=== PATIENT | male | born 1960 | race Caucasian/White ===

== ENCOUNTER 2024-07-20 08:56 | Day surgery (SDC) | payer BC, SELFPAY ==
[2024-07-13 09:57] VITALS: BMI 34.9
[2024-07-20] VITALS (14 sets, daily range): BP systolic 134–173; BP diastolic 68–105; PULSE 70–84; RESP 12–26; TEMP 36.2–36.9; O2SAT 93–97; BMI 34.9
--- NOTE | 2024-07-20 06:00 | DI.RAD.S_ITS ---
PROCEDURE: XR KNEE LT 1TO2V INDICATIONS: TKA TECHNIQUE: 2 view(s) of the knee acquired. COMPARISON: None. FINDINGS: Bones: Patient is status post knee joint arthroplasty. Hardware components are in expected positions. Visualized bony structures are intact. Soft tissues: Overlying postoperative changes are noted. IMPRESSION: Expected post-operative appearance of a knee arthroplasty. Dictated by: Seema Mahajan M.D. on 07/21/2024 at 9:43 Approved by: Seema Mahajan M.D. on 07/21/2024 at 9:44
[2024-07-20] MEDS: ACETAMINOPHEN 325 MG TABLET 975 MG PO (09:28)
[2024-07-20] MEDS: LACTATED RINGERS 1,000 ML 42 ML IV ×3 (09:30→16:15)
--- NOTE | 2024-07-20 11:01 | PM.PREOP ---
Pre-operative Note Interval Note History & Physical reviewed/Exam performed by Physician: Yes Changes to H&P: No
[2024-07-20] MEDS: CEFAZOLIN VIAL 3 GM in SODIUM CHLORIDE 0.9% 100 ML IV (11:21)
[2024-07-20] MEDS: TRANEXAMIC ACID 1,000 MG VIAL 1000 MG INJ ×2 (11:37→14:05)
--- NOTE | 2024-07-20 12:03 | SUR.OPER ---
Supine on padded OR bed. Pillow under head, arms secured on padded armboards <90 degree abduction. Safety belt across torso. Non-operative leg secured with tape over blanket over lower leg. Operative leg secured in Shaheen positioner. Foam padded brace at thigh of operative leg.
[2024-07-20] MEDS: VANCOMYCIN 1,000 MG VIAL 1000 MG TOP (12:20)
[2024-07-20] MEDS: ROPIVACAINE/EPI/CLONIDINE/KET 50 ML SYRINGE INJ (12:30)
--- NOTE | 2024-07-20 15:24 | P.OP_ITS ---
Operative Date/Time/Diagnoses Date of procedure: 07/20/24 Pre-op diagnosis: Arthrofibrosis of left total knee arthroplasty Post-op diagnosis: same Procedure & Clinicians Procedure: Revision of femoral component of left total knee arthroplasty with robotic assistance Same procedure as scheduled: Yes Surgeon: Jean Santos Upholsterer Apprentice: Tasha Wick Anesthesia Type: General, Spinal and Local Operative Notes Estimated Blood Loss (mL): 200 Tourniquet time (min): 130 Procedure in detail: Revision of femoral component of left total knee arthroplasty with retention of tibial component using robotic assistance for arthrofibrosis and intraosseous administration of vancomycin Implants: * Size 7 legion revision femoral component with 10 mm distal/5 mm posterior medial augment, 5 mm distal/10 mm posterior lateral augment and 14 mm x 160 mm cemented stem * Size 18 femoral cone * 9 mm oswald 2 posterior stabilized high flexion polyethylene insert with journey lock detail * Retention of prior journey 2 size 6 tibial base plate from prior surgery * Retention of prior 35 mm patellar button from prior surgery Procedure Summary: This 63-year-old male patient presented to my clinic with a primary complaint of a lack of terminal extension in his total knee arthroplasty which had been placed over a year ago. On my evaluation he lacked 22? of terminal extension. I initially planned to perform a lysis of adhesions and downsize his polyethylene insert however when I was able to get access to his old operative report indicated that he had the smallest size polyethylene insert in the system which eliminated the possibility of the less invasive procedure. He is immunosuppressed on to immunosuppressant medications because of his history of a liver transplant and because of this immunosuppression I was very concerned about the possibility of underlying infection. An extensive workup was performed prior to today's procedure which is outlined in the screen shot below taken from his medical record in the [facility] system: Intraoperatively today I inspected the patellar and tibial components and found that they were well fixed so they were retained. I did not see any signs of infection during my evaluation of the knee during the surgery but did send 3 cultures for analysis, both the medial and lateral gutter and the intramedullary contents of the femur. With robotic assistance I resected an additional 7.5 mm of distal femur to allow him to achieve full extension. Stem and cone were used on the femur to provide both short term and long-term biologic fixation. At the conclusion of the procedure had full range of motion knee in both flexion and extension had balanced medial and lateral compartments in both flexion and extension. Procedure in Detail: Following preoperative optimization, the patient was scheduled for surgery. The patient was met in the preoperative holding area the day of the procedure and all questions were answered. The patient?s nares were swabbed with betadine in order to decolonize them from MRSA. Informed consent was signed and the laterality limb was marked with indelible ink.? The patient was brought back to the operating room where anesthesia was induced. The patient was transferred to the operating table and all bony prominences were padded. The operative site was prepped and draped in the usual sterile fashion. A second prep stick was utilized following drape placement. The incision was marked corresponding to the medial aspect of the tibial tubercle and the patella. Ioban was wrapped circumferentially around the knee. Prior to incision, tranexamic acid and cefazolin were administered. Templating images were displayed. A timeout procedure was performed verifying the patient?s identity, medical comorbidities, allergies, relevant medications, anesthesia type and the surgical plan. All present were in agreement. The assistance of a physician shampoo assistant was required for positioning, room setup, soft tissue retraction and wound closure. Without this assistance, the procedure would have been significantly more challenging and time consuming.?? The tourniquet was inflated prior to incision. I made a stab incision over the proximal tibia and placed an intraosseous needle into the tibia and then infiltrated the tibial bone with 60 mL of dilute vancomycin so that it would backflow through the venous system into all of the soft tissues and bone of the knee while the tourniquet remained up. I dissected through the old scar and excised it. I noted while doing this that the scar even in the skin was extremely thick. I extended the incision proximally and distally. Dissected through subcutaneous scar and identified the lateral border of the VMO. I performed a medial parapatellar arthrotomy and again noted abundant scar which was very thick throughout that area. I dissected the scar deep to the quadriceps tendon off of the anterior femur where it was partially adhesed and performed a medial peel off the proximal tibia. Attempted to melissa the patella but was unable to do so. I would return to this later in the case and excise scar from around the patellar button once I was able to melissa the patella. I placed 2 Javier is on the extensor mechanism medially and excised the tissues medial gutter. Sent this for culture. I then moved to the other side of the table and did the same for the lateral gutter, placing 2 coworkers and then excising it. I also sent this for culture. I placed pins for the robotic array in the tibia and femur. I ensured appropriate visualization for the robotic system and assess the range of motion of the knee. This indicated that he lacked 23? of terminal extension. This aligned with my preoperative findings that I had measured photographically at 22?. I performed stressed and unstressed range of motion testing of the knee after registering bony landmarks and constructed a plan which would result in an appropriately balanced knee. One major challenge of this was his inability to achieve full extension which meant that we could not incorporate terminal extension balancing into our plan in a definitive fashion. All changes were engineered to occur through the femoral component as I planned to retain the tibial component and did not want to program the robotic assistance to make any adjustments from the current tibial orientation. I then loosened the interface between the femoral component and the underlying bone using a combination of a microsagittal saw and osteotomes. The femoral component was well fixed. I used a [employer] back slap device which locked onto the femoral component to loosen it and adjusted it accordingly for the rocking motion which is necessary when placing a journey 2 knee due to the 5 in 1 cut. Once the femoral component had successfully been removed I evaluated the underlying bone and the back of the implant. I found that there was still cement attached to the femoral component, particularly posteriorly, and the bone below it was stress shielded but there were no large bony defects. Using the robotic system I then resected bone according to the planned orientation of the femoral component. This left bony defects distally and posteriorly. I adjusted the programming for the medial and lateral distal femur to accommodate 5 mm augments and resected this bone using the bur. I found that this resulted in an appropriate bony interface laterally but not medially so I resected an additional 5 mm medially intending to use a 10 mm augment. I then repeated this process for the posterior femur, in that instance finding that 5 mm was sufficient posterior medially but not posterior laterally and I therefore resected an additional 5 mm posterior laterally and used a 10 mm posterolateral augment. I placed a trial primary femoral component on the femur with the corresponding augments and the smallest polyethylene insert in the system. I found that this had improved extension as the knee was much closer to being straight but was still clearly not straight. The robotic system indicated that it still lacked 12? of terminal extension. Initially the programming we had utilized for the robotic resection had moved the distal femur 4.5 mm proximally so we adjusted the programming to move it 3 mm more proximally both medially and laterally to result in a total of 7.5 mm of additional distal femoral resection. The robotic bur was utilized to remove this bone and to ensure that the corresponding chamfers had been removed as well and then the trial femoral component with the corresponding augments was placed again. I now noted further extension, with the knee appearing to be grossly straight and the robotic array measuring the knee in 2? of flexion when it was held by the heel. Being satisfied with the position of the planned femoral component I removed the robotic arrays from the tibia femur. Used rigid reamers to ream up to 16 mm in the distal femur and placed the revision femoral trial with the correct augments over that to ensure that the boss would fit in the femoral canal which it did. I therefore removed the femoral component and used reamers and broaches to prep for the smallest size femoral cone in the system which is a size 18 cone. I placed a cone trial in the femur. I placed the femoral trial back now including a 14 mm x 160 mm stem in ensure that everything fit appropriately. I again trialed and was satisfied with the balance between the flexion and extension gaps as well as between the medial lateral compartments. I removed all trial components and soaked the knee in a dilute mixture of Betadine and peroxide. Definitive components were opened and assembled on the back table. The femur was exposed and the femoral cone was inserted into the distal femur. The femur was irrigated with pulse lavage and cement was introduced into the distal and posterior femoral surfaces as well as into the femoral canal proximal to the cone. The antibiotics did not interfere with the interface between the cone and the bone. Cement was placed on the femoral component and stem as well. The femoral component was placed and impacted down. Excess cement was removed. A trial polyethylene was placed and the knee was brought into full extension and pressurized. The tourniquet was let down when cement was nearly dry and hemostasis was achieved. I again soaked all of the components in dilute Betadine and peroxide. It was at this point that I also resected scar from around the patellar button as I could now access it at the conclusion of the case. After cement had been allowed to dry the excess cement was removed and the posterior capsule was inspected for bleeding. Inserted the polyethylene insert which would meet the retained journey 2 tibial base plate to the revision legion femoral component. I had at multiple points throughout the procedure tested the stability of the tibial component to ensure that it was well fixed. Infiltrated the soft tissues around the knee with a mixture of ropivacaine epinephrine clonidine and Toradol. The arthrotomy was closed with non-absorbable interrupted suture ensuring that this extended to the top of the arthrotomy. This was backed up with running barbed suture throughout the arthrotomy. The skin was closed with 2-0 and 3-0 sutures. Surgical glue was applied and a soft dressing was placed.?The sponge, instrument and needle counts were reported as being correct at the end of the case.??No obvious complications occurred. The patient was transferred from the operating table back to a stretcher. The patient emerged from anesthesia without difficulty and was taken to the PACU in a stable condition.? Plan for aftercare: * Weightbearing as tolerated * A lan incisional wound VAC has been placed which should remain in place until his follow up visit in clinic. After a week the battery will at which point the cord can be removed and it can be used as a normal dressing until follow up * In order to limit the possibility of the occurrence of infection given the high risk with the revision surgery and his immunosuppression I utilized intraosseous vancomycin with the tourniquet up so that it would backflow into all of the soft tissues. I also will prescribe him prophylactic cefadroxil postoperatively which will be taken twice a day. * Aspirin 81 twice per day for DVT prophylaxis * Indomethacin 25 mg 3 times per day to attempt to limit scar formation given the abundant scar that was formed following his prior total knee * Proton pump inhibitor while on indomethacin to minimize the risk of gastric complications related to that medication * Continue immunosuppressive medications for his prior liver transplant * Anticipate discharge home tomorrow * Follow up at [facility] in 2 weeks * Detailed postoperative instructions available at [email or web address]
[2024-07-20] MEDS: HYDROMORPHONE 1 MG INJ IV (15:33)
[2024-07-20] MEDS: OXYCODONE IR 5 MG TABLET PO (15:34)
[2024-07-20] MEDS: hydrOXYzine HCL 25 MG TABLET PO (15:34)
[2024-07-20] MEDS: LORazepam 2 MG/ML INJ 0.25 MG IV ×2 (15:58→16:15)
--- NOTE | 2024-07-20 16:03 | SUR.PHASEI ---
Pt attempting to crawl out of bed despite relaxation techniques and education. Dr. Washburn notified. Order for Ativan IV received. Given per order, see AUG.
[2024-07-20] MEDS: CEFAZOLIN 2 GM/100 ML PREMIX 100 ML IV (18:57)
[2024-07-20] MEDS: LACTATED RINGERS 1,000 ML 100 ML IV (18:58)
[2024-07-20] MEDS: TACROLIMUS 0.5 MG CAPSULE 1 MG PO (20:22)
[2024-07-20] MEDS: ASPIRIN EC 81 MG TABLET PO (20:22)
[2024-07-20] MEDS: MYCOPHENOLATE MOFETIL 500 MG TABLET PO (20:23)
[2024-07-20] MEDS: IBUPROFEN 600 MG TABLET PO (22:55)
[2024-07-20] MEDS: ACETAMINOPHEN 325 MG TABLET 650 MG PO (22:55)
[2024-07-21] VITALS: BP 124/68; PULSE 93; RESP 20; TEMP 36.7; O2SAT 95
[2024-07-21] MEDS: CEFAZOLIN 2 GM/100 ML PREMIX 100 ML IV (02:32)
[2024-07-21 04:00] VITALS: BP 135/76; PULSE 92; RESP 20; TEMP 36.4; O2SAT 96
[2024-07-21 04:46] LABS: Hemoglobin 11.2 g/dL (13.5-17.5)
--- NOTE | 2024-07-21 06:53 | PC.NURSE ---
NOC: Pt OOB with SBA/FWW, voiding >30mL/hr, pain well controlled with scheduled APA and ibuprofen.
--- NOTE | 2024-07-21 07:40 | P.DS_ITS ---
History of Present Illness History of Present Illness Date Patient Seen: 07/21/24 Time Patient Seen: 07:40 Chief complaint: Left total knee revision *OPB* Narrative: Operative Date/Time/Diagnoses Date of procedure: 07/20/24 Pre-op diagnosis: Arthrofibrosis of left total knee arthroplasty Post-op diagnosis: same Procedure & Clinicians Procedure: Revision of femoral component of left total knee arthroplasty with robotic assistance Same procedure as scheduled: Yes Surgeon: Jean Santos Collar Turner Operator: Tasha Wick Anesthesia Type: General, Spinal and Local Operative Notes Estimated Blood Loss (mL): 200 Tourniquet time (min): 130 Procedure in detail: Revision of femoral component of left total knee arthroplasty with retention of tibial component using robotic assistance for arthrofibrosis and intraosseous administration of vancomycin Implants: * Size 7 legion revision femoral component with 10 mm distal/5 mm posterior medial augment, 5 mm distal/10 mm posterior lateral augment and 14 mm x 160 mm cemented stem * Size 18 femoral cone * 9 mm oswald 2 posterior stabilized high flexion polyethylene insert with journey lock detail * Retention of prior journey 2 size 6 tibial base plate from prior surgery * Retention of prior 35 mm patellar button from prior surgery Discharge Providers Provider Discharge Date: 07/21/24 Primary care physician: Leonid Rachel MD Consults: 07/13/24 10:56 Consult to Anesthesiology Routine Comment: Consulting Provider: Anesthesiologist Reason for consultation: Surgeon requested re: Liver transplant 07/20/24 06:00 Consult to Anesthesiology Routine Comment: Consulting Provider: Anesthesiologist Reason for consultation: Regional block for post operative pain control Has provider been notified: No 07/20/24 16:53 Consult to Discharge Planning Routine Comment: Consult to Occupational Therapy Evaluate & Treat Comment: Physician Instructions: Evaluate and treat Consult to Physical Therapy Evaluate & Treat Comment: Physician Instructions: postop TKA protocol Discharge provider: Tasha Wick PA-C Summary Hospital Course Discharge Diagnosis: Arthrofibrosis of left total knee arthroplasty; s/p revision of femoral and polyethylene components Hospital Course: Mr Rose's hospital course was unremarkable. On the morning of POD# 1, he was feeling well and wanted to go home. He was eating and voiding without difficulty and his pain was well-controlled without opioids. He had not yet worked with PT but had been OOB several times and I observed him get out of bed and walk around his room with a walker. Exam Vital Signs (past 8 hours): - 07/21/24 00:00 07/21/24 04:00 Temperature 98.1 F 97.5 F L Pulse Rate 93 H 92 H Respiratory Rate 20 20 Blood Pressure 124/68 135/76 Pulse Oximetry 95 96 Oxygen Flow Rate 0 0 Oxygen Delivery Method Room Air Oxygen Flow Rate 0 Narrative Exam Narrative: 5/5 strength in hip flexors, quadriceps, hamstrings, PF, DF, EHL on right. Sensation to light touch intact throughout RLE. Calf soft and compressible. MILY over webril and FATIAMH CDI; FATIMAH functioning. Objective Labs 07/21/24 04:35 Labs: Laboratory Results - last 24 hr 07/21/24 04:35 Hgb 11.2 L Hct 33.0 L PFSH Medical History (Updated 07/13/24 @ 10:21 by Radha Hicks RN) History of COVID-19 (2019) GREENBERG (nonalcoholic steatohepatitis) Pre-diabetes HTN (hypertension) Surgical History (Updated 07/13/24 @ 10:16 by Radha Hicks RN) Hx of tonsillectomy History of total left knee replacement (12/24/22) Hx of liver transplant (03/2021) Social History household members: none Smoking Status: Former smoker alcohol intake: former Discharge Assessment & Plan Assessment and Plan Assessment: Arthrofibrosis of left total knee arthroplasty; s/p revision of femoral and polyethylene components Plan of Treatment: Discharge home after PT, outpt PT, f/u in office as scheduled. ASA BID for VTE prophylaxis, cefadroxil for PJI prophylaxis, indomethicin for inflammation control, omeprazole as protective PPI. Discharge Plan Discharge Plan Patient Disposition: Home Discharge orders & Medications Discharge Orders: Discharge (Order); Ordered 07/21/24 Ordered By: Tasha Wick Prescriptions: New indomethacin 25 mg capsule 25 mg PO TID Qty: 42 0RF Rx Instructions: administer with food or milk. DO NOT take ibuprofen or other NSAIDs while taking this medication. omeprazole 20 mg capsule,delayed release(DR/EC) 20 mg PO BID Qty: 60 0RF Rx Instructions: Take twice daily while taking indomethacin. Continued amlodipine 5 mg Tablet 5 mg PO BEDTIME mycophenolate mofetil 500 mg Tablet 500 mg PO BID magnesium 250 mg Tablet 250 mg PO DAILY tacrolimus 1 mg Capsule 1 mg PO Q12H Follow up/Referrals: Leonid Rachel MD [Primary Care Provider] - Jean Santos MD [Physician] - 07/31/24 1:00 pm (Follow up w/ Tasha Wick PA-C) Diet/Activity/Treatments Diet: Diet as Tolerated Activity: Weightbearing as tolerated. Walk frequently! Cold/Heat Therapy: Ice to knee as needed for pain. Skin/Wound/Dressing Care Report to your healthcare provider any signs of infection, such as:: chills, fever, night sweats, unusual drainage and unusual redness Dressing: May remove MILY wrap and cotton padding and shower on 07/22/2024. Leave FATIMAH dressing in place until follow up in office. No bathing or otherwise soaking incision. In 5-7 days, batteries will , at which point you can cut off the battery pack and dispose of it. Leave the dressing on until your appointment. Call the office if the dressing becomes saturated inside. Visit Report/Discharge Packet Instructions: DI for Knee Replacement, DI for Prescription Opioid Use Stand Alone Forms: Patient Portal/API, Surgery Discharge Discharge Data Primary Care Provider: Leonid Rachel Attending Provider: Jean Santos Quality VTE Deep Vein Thrombosis/Pulmonary Embolism Present on Admission: No
--- NOTE | 2024-07-21 09:30 | PT.IIE ---
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) Hx of liver transplant (03/2021) Hx of tonsillectomy Medical History (Last Updated 07/13/24 @ 10:21 by Radha Hicks RN) History of COVID-19 (2019) HTN (hypertension) GREENBERG (nonalcoholic steatohepatitis) Pre-diabetes Physical Therapy Inpatient Evaluation/Re-Eval M1 PT/OT-IP Prior Functional Status Start: 07/21/24 12:27 Freq: NEEDED Status: Active Protocol: Document 07/21/24 09:30 AB (Rec: 07/21/24 12:43 AB [id number]) Medical Review Prior Functional Status Medical History Reviewed Yes Communication able to make needs known Mobility and Gait pt stated that he was modified independent with all mobilities and ambulation using a SPC 50% more for outdoor mobility Activities of Daily Living and IADL's Pt having pain but able to do ADL and IADl needs. Social History Household Members none Living Arrangements House Number of Floors (Floors) Two Floors Number of Stairs To Enter/Railing? 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 pt stated that his daughter will stay with him for a few days to assist him M2 PT-IP Current Condition Start: 07/21/24 12:27 Freq: NEEDED Status: Active Protocol: Document 07/21/24 09:30 AB (Rec: 07/21/24 12:43 AB [id number]) Physical Therapy Current Condition Current Condition Evaluation Date 07/21/24 Treatment Diagnosis s/p L TKA revision; difficutly in walking Onset Date 07/20/24 M3 PT-IP Subjective Start: 07/21/24 12:27 Freq: NEEDED Status: Active Protocol: Document 07/21/24 09:30 AB (Rec: 07/21/24 12:43 AB [id number]) Subjective Physical Therapy Visit Type Type Initial Evaluation Visit Start Time 09:30 Visit Stop Time 09:55 Number of MAP MAKER Visits 0 Physical Therapy Visit Comments Patient Comments agreeable to do PT Therapy Pain Assessment Pain When Pain Assessed At Rest Pain Present Pain Present Pain Reported Location Left Knee Intensity 3 Scale Used Numeric (0 - 10) Pain Behaviors Guarding Pain Management Techniques Apply Cold,Distraction, Elevation,Modification of Treatment,Re-positioning, Timing of Activity with Medications M4 PT-IP Mobility and Gait Start: 07/21/24 12:27 Freq: NEEDED Status: Active Protocol: Document 07/21/24 09:30 AB (Rec: 07/21/24 12:43 AB [id number]) PT-Bed Mobility Assessment Supine to Sit Supine to Sit Standby Assistance Sit to Supine Sit to Supine Standby Assistance PT-Transfer Assessment Sit to and From Stand Sit to and from Stand Standby Assistance,Use of Upper Extremities Equipment Transfer Assistive Device Gait Belt,Front Wheeled Walker Orthotic/Prosthetic Devices or Brace: No Transfers Transfer Destination Bed,Chair Transfer Technique Stand Step Pivot Transfer Ability Level of Assist Standby Assistance,1 Person Assistance,Use of Upper Extremities Comments Mobility Comments pt sitting on the chair and agreeable to do PT. obtained PLOF and home set up. pt is very impulsive. pt got up and squat pivot to EOB without AD even before PT can get FWW close for pt to use. educated pt on safety. pt completed sit<>supine SBA. sit to stand from EOB SBA and ambulated in room using FWW ~ 40ft SBA. cued for L quads activation and L knee stability. pt sat back on chair. positioned pt on the chair. call light and table placed next to pt. Gait Assessment Gait Gait Assistance Required: Standby Assistance Distance (Feet) 40 Able to Maintain Weight Bearing Status Yes During Gait Assistive Devices Assistive Device Gait Belt,Front Wheeled Walker Orthotic/Prosthetic Devices or Brace: No Gait Deviations General Gait Pattern Antalgic,Decreased Stride Length,Decreased Feet Clearance,Step-to Gait Factors Limiting Gait Function Factors Limiting Gait Function Decreased Activity Tolerance, Decreased Strength,Limited Range of Motion,Pain,Poor Balance,Poor Safety Awareness PT-Balance Assessment Sitting Balance and Reactions Static Sitting Balance Ability Normal Dynamic Sitting Balance Ability Normal Standing Balance and Reactions Static Standing Balance Ability Fair Dynamic Standing Balance Ability Fair Device Used FWW M5 PT-IP Objective Assessments Start: 07/21/24 12:27 Freq: NEEDED Status: Active Protocol: Document 07/21/24 09:30 AB (Rec: 07/21/24 12:43 AB [id number]) Orientation Orientation/Cognition Level of Alertness Alert Orientation Name,Place,Situation Language Function Ability No Deficits Noted Safety Awareness Decreased Safety Awareness Memory Description No Deficits Noted Strength Lower Extremity Strength Assessment Left Impaired Hip 3+/5 Knee 3+/5 Muscle Tone Muscle Tone WNL Yes M6 PT-IP Treatment Start: 07/21/24 12:27 Freq: NEEDED Status: Active Protocol: Document 07/21/24 09:30 AB (Rec: 07/21/24 12:43 AB [id number]) Physical Therapy Treatment Education Education Provided Safety M7 PT-IP Assessment and Plan Start: 07/21/24 12:27 Freq: NEEDED Status: Active Protocol: Document 07/21/24 09:30 AB (Rec: 07/21/24 12:43 AB [id number]) PT Summary Assessment and Plan Potential Rehabilitation Potential Good Summary Impairments Pain,ROM,Strength,Balance, Coordination,Sensation,Tone, Cognition,Bed Mobility, Transfers,Gait,Activity Tolerance Assessment Summary pt is a 63 y/o M s/p L TKA revision POD 1. pt requiring SBA with mobility using a FWW. pt will have his daughter with him to assist for a few days. pt has outpt PT set up. Goals Bed Mobility Goal Independent Transfer Goal Independent,Front Wheeled Walker Gait Goal Independent,Front Wheel Walker Gait Distance 300 Frequency of Treatment Frequency Of Treatment Twice a Day Treatment Plan Physical Therapy Treatment Plan Bed Mobility Training,Transfer Training,Gait Training, Therapeutic Exercise,Balance Retraining,Post Op Education, Discharge Planning,Hot or Cold Pack,Neuromuscular Re-ed, Coordination Retraining,Manual Therapy Weight Bearing Status Weight Bearing Status Weight Bear as Tolerated Allowed Weight Bearing Amount (enter % LLE WBAT or #) (%) Recommendations To Nursing Amount of Assist Needed Standby Assistance Discharge Recommendations PT Discharge Recommendations Home with Assistance, Outpatient PT Transportation Needs at Discharge Private Vehicle
--- NOTE | 2024-07-21 09:33 | OT.IP.EVAL ---
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 Activities of Daily Living and IADL's Pt having pain but able to do ADL and IADl needs. Social History Household Members none Living Arrangements House Number of Floors (Floors) Two Floors Number of Stairs To Enter/Railing? Pt has no step to get into the main level and already has a bed set-up in the living room. Home Environment Standard Height Toilet,Walk in Shower Home Equipment Front Wheel Walker,Straight Cane,Raised Toilet Seat w/ Armrests,Shower Seat without Backrest,Hand Held Shower,Long Handled Sponge,Long Handled Shoe Horn,Outpatient Physical Therapist Assistant,Sock Aid, Grab Bars In Shower M2 OT-IP Current Condition Start: 07/21/24 10:09 Freq: Status: Active Protocol: Document 07/21/24 10:09 [facility] (Rec: 07/21/24 10:17 [facility] [id number]) Occupational Therapy Current Condition Current Condition Evaluation Date 07/21/24 Treatment Diagnosis S/P L TKA revision Diagnosis Onset Date 07/20/24 M3 OT- IP Subjective and Pain Start: 07/21/24 10:09 Freq: Status: Active Protocol: Document 07/21/24 10:09 [facility] (Rec: 07/21/24 10:17 [facility] [id number]) OT- Subjective Occupational Therapy Visit Type Type Initial Evaluation Visit Start Time 09:10 Visit Stop Time 09:33 Occupational Therapy Visit Comments Patient Comments Pt agreed to get dressed. Patient/Caregiver Goals To go home. OT Pain Assessment Pain When Pain Assessed At Rest Pain Present Pain Present Pain Reported Location Left Knee Intensity 3 M4 OT- IP ADL's Start: 07/21/24 10:09 Freq: Status: Active Protocol: Document 07/21/24 10:09 [facility] (Rec: 07/21/24 10:17 [facility] [id number]) OT QST-Qotw-Ovdrurx General Evaluation Self-Feeding Ability Independent OT ADL-Grooming General Evaluation Grooming Ability Independent OT ADL-Oral Care Comments Oral Care Comments Not performed. OT ADL-Dressing General Eval Upper Body Dressing Ability Independent Lower Body Dressing Ability Standby Assistance Comments OT Dressing Comments Pt has LB dressing equipment at home. Encouraged pt to sit to get dressed. Educated pt to dress the LLE first and take out last. OT ADL-Toileting Comments OT Toileting Comments Pt states has urinal at home. Spoke on standing over the toilet with FWW. Educated pt to be mindful of his left knee positioning during hygiene and dressing needs. OT ADL-Bathing Comments OT Bathing Comments Pt aware to cover the dressing showering. M5 OT- IP IADL's Start: 07/21/24 10:09 Freq: Status: Active Protocol: Document 07/21/24 10:09 [facility] (Rec: 07/21/24 10:17 [facility] [id number]) OT-Instrumental Activities of Daily Living Deficits IADL Deficits Identified Deficits Home Safety Awareness Awareness of Need for Assistance at Home Good Awareness Ability to Problem Solve Emergency Able to Problem Solve Situations Medication Management Medication Management No Deficits Identified Money Management Money Management No Deficits Identified Meal Preparation Meal Preparation Comments Pt's daughter to assist. Tool Supervisor Tool Supervisor Comments Pt's daughter to assist. M6 OT- IP Functional Cognition Start: 07/21/24 10:09 Freq: Status: Active Protocol: Document 07/21/24 10:09 [facility] (Rec: 07/21/24 10:17 [facility] [id number]) Cognitive Factors Limiting Selfcare Function Cognitive Ability Level of Alertness Alert Patient Orientation Name,Age,Birthday,Month,Date, Year,Day of Week,Place, Situation Attention Span Ability Capable of Focused Attention, Capable of Sustained Attention Ability to Follow Commands Able to Follow Multi-Step Commands Safety Awareness Underestimates Need for Assistance Cognitive Comments Cognitive Assessment Comments Pt a bit impulsive and needing cues to slow down and keep the FWW in front of him at all times. OT- Vision and Hearing OT- Hearing Assessment OT- Hearing Assessment WFL OT- Vision Assessment Visual Acuity Glasses For Reading Visual Attentiveness WFL Occular Pursuits WFL M7 OT- IP Mobility and Balance Start: 07/21/24 10:09 Freq: Status: Active Protocol: Document 07/21/24 10:09 [facility] (Rec: 07/21/24 10:17 [facility] [id number]) OT-Transfer Assessment Sit to and From Stand Sit to and from Stand Independent Transfers Transfer Ability Independent Technique Transfer Destination Chair Transfer Technique Stand Step Pivot Devices Transfer Assistive Devices None,Front Wheeled Walker Comments Mobility Comments Pt distant supervision in the room with FWW. Mainly needing vc to slow down. OT- Balance Assessment Sitting Balance and Reactions Static Sitting Balance Ability Normal Dynamic Sitting Balance Ability Normal Standing Balance and Reactions Static Standing Balance Ability Normal Dynamic Standing Balance Ability Good M8 OT- IP Objective Assessments Start: 07/21/24 10:09 Freq: Status: Active Protocol: Document 07/21/24 10:09 [facility] (Rec: 07/21/24 10:17 [facility] [id number]) OT Gross Range of Motion Upper Extremity Range of Motion Assessment Within Functional Limits OT Strength Upper Extremity Strength Assessment Within Functional Limits Comments Strength Comments WFL for needs. M9 OT- IP Assessment and Plan Start: 07/21/24 10:09 Freq: Status: Active Protocol: Document 07/21/24 10:09 [facility] (Rec: 07/21/24 10:17 [facility] [id number]) OT Summary Assessment and Plan Potential Rehabilitation Potential Excellent Analytic Complexity at Evaluation Low Summary OT Impairments Pain,Balance,Functional Mobility,Bathing,Shower Transfers Progress Towards Goals Progressing Toward Goals Assessment Summary Pt low complexity and main barriers are pain and a bit impulsive and needing vc to slow down and use the FWW at all times. Pt to go home with his daughter and attend outpt PT. Goals Dressing Goal Independent Toileting Goal Independent Bathing Goal Independent Toilet Transfer Goal Independent Shower Transfer Goal Independent Days to Meet Goals 2 Frequency of Treatment Frequency Of Treatment Once a Day Treatment Plan OT Treatment Plan ADL Training,Functional Mobility,Patient/Family Education,Discharge Planning Discharge Recommendations OT Discharge Recommendations Home with 24/7 Assist Available,Outpatient PT Transportation Needs at Discharge Private Vehicle
[2024-07-21] MEDS: ASPIRIN EC 81 MG TABLET PO (09:58)
[2024-07-21] MEDS: MAGNESIUM OXIDE 400 MG TABLET 200 MG PO (09:58)
[2024-07-21] MEDS: MYCOPHENOLATE MOFETIL 500 MG TABLET PO (09:58)
[2024-07-21] MEDS: TACROLIMUS 0.5 MG CAPSULE 1 MG PO (09:58)
[2024-07-21] MEDS: ACETAMINOPHEN 325 MG TABLET 650 MG PO (10:02)
[2024-07-21] MEDS: IBUPROFEN 600 MG TABLET PO (10:05)
--- NOTE | 2024-07-21 10:37 | PM.PN.1 ---
Subjective Subjective Interval history: Because of Domingo's liver condition he is supposed to stringently avoid NSAIDs. I had initially prescribed him indomethacin for scar prevention however given this guidance from his liver transplant team he should not fill that prescription or take that medication. I discussed this with him today and he expressed understanding. He should not receive any NSAIDs during the remainder of his hospital admission. He states that he is fine to take aspirin so we can use that for DVT prophylaxis Exam Vital Signs (past 8 hours): - 07/21/24 04:00 Temperature 97.5 F L Pulse Rate 92 H Respiratory Rate 20 Blood Pressure 135/76 Pulse Oximetry 96 Oxygen Flow Rate 0 Oxygen Delivery Method Room Air Oxygen Flow Rate 0 Objective Labs 07/21/24 04:35 Labs: Laboratory Results - last 24 hr 07/21/24 04:35 Hgb 11.2 L Hct 33.0 L PFSH Medical History (Updated 07/13/24 @ 10:21 by Radha Hicks RN) History of COVID-19 (2019) GREEN[place]G (nonalcoholic steatohepatitis) Pre-diabetes HTN (hypertension) Surgical History (Updated 07/13/24 @ 10:16 by Radha Hicks RN) Hx of tonsillectomy 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 Quality VTE Deep Vein Thrombosis/Pulmonary Embolism Present on Admission: No
--- NOTE | 2024-07-21 10:48 | CM.DANOTE ---
DCP Assessment note pt is a 63yo M POD1 total left knee with Dr. Santos PCP Leonid Rachel [facility] [place] VINYL DIPPER reviewed EMR. per OT, rec gordon with assistance. per RN note, pt OOB with nursing staff and ambulating well. VINYL DIPPER met with pt briefly in room. introduced self and role. pt confirms eager to dc home with dtr Bela support, has the DME (walker, elevated toilet, grab bars, and cane) needed for home. denies CM needs/questions. brief DCP conversation- pt on hold with his [employer] company and they answered while this VINYL DIPPER was in the room. P: dc home today with dtr support and OP f/u. no CM needs identified at this time. CM team will continue to follow as needed. transport with dtr Bela in POV. ZAHRA Ontiveros Discharge Planning/Care Management CM Discharge Assessment Start: 07/21/24 10:46 Freq: Status: Active Protocol: Document 07/21/24 10:46 (Rec: 07/21/24 10:47 [id number]) Discharge Planning Assessment Assigned Commercial Subcontractor ZAHRA Berrios DPOA/Assigned Designee Name Bela alix Contact Information [phone] Advance Directives? No History Provided By Patient Prior Living Arrangements House Household Members none Type of transporation used prior to Drives own vehicle admit Independent with ADL's Yes Is patient alert and oriented? Yes DME Already Rented / Owned Elevated Toilet Seat,FWW / Walker,Cane,Other Barriers to Discharge No Discharge Plan Home Referrals Initiated None needed Whiteboard Updated in Patient Room with No name and ext. # of Commercial Subcontractor Review Status In Process Please Provide Date Initial DC 07/21/24 Assessment Was Performed Next Review Type Continued Stay Review Pre-Anesthesia Assessment Start: 07/13/24 09:57 Freq: Status: Active Protocol: Document 07/13/24 09:57 [facility] (Rec: 07/13/24 10:56 CAB [id number]) Pre-Anesthesia Assessment PAC Comment Phone assessment 07/13/24 Patient Information Reviewed Via Phone Assessment Diagnostic Results BMP/CMP,CBC,EKG Comment Outside labs/EKG scanned Primary Care Provider Leonid Rachel Comment Pre-op visit w/clearance form scanned and in surgery folder Medical Clearance Received Yes Seen Specialist in Last 12 Months Yes Specialist Seen Orthopedist,Other Comment Liver Transplant team Primary Language Montenegrin Assistant Store Manager Required No Height 187.96 cm Weight 123.377 kg Body Mass Index (BMI) 34.9 Hearing Ability Normal Visual Assist Magnifying Glass Dentition Type Teeth, Natural Present Barriers to Learning None Hx Anesthesia Reactions No Hx Family Anesthesia Reaction No Hx Malignant Hyperthermia No Hx Blood Transfusions No: With liver transplant Hx Blood Transfusion Reaction No Anesthesia Review Requested Yes: Surgeon requested re: Liver transplant dysfunction alcohol intake former Alcohol Intake Frequency Other: Stopped age 26 Smoking Status Former smoker how long ago did patient quit smoking 2020 Substance Use Type [#R] does not use Pain Present Pain Reported Musculoskeletal Symptoms Abnormal Gait,Difficulty Walking,Joint Pain History of Falling (Recent or History of No ) Patient is completely paralyzed or No completely immobile Prosthesis or Orthotic Device Cane Mental Status Oriented to own ability Is patient on oxygen? No Does patient have FERNANDEZ/SOB No Hx Sleep Apnea No Currently Taking a Beta Ciara No Can You Climb a Flight of Stairs Without Yes SOB Hx Chest Pain No Hx SOB No Hx Syncope or Dizziness No Anti-Coagulant Therapy No Has a Funeral Home Makeup Artist No Cardiac Testing No Hx Pacemaker/ICD No Pacemaker Rep Required? No Cardiac Clearance Received No Diet Type At Home Regular,Ketogenic Dysphagia No Gastrointestinal Symptoms None Bladder Pattern Nocturia Urinary Catheter Present No Hx Urinary Self Catheterization No Diabetes Yes HgbA1C 5.9 Date 03/11/24 Hx Drug Resistant Organism No Presence of External or Internal Medical Yes: Left knee prosthesis Devices Comment No covid symptoms x 8 weeks Marital Status / Lives With none Current Living Arrangements House Number of Floors (Floors) Two Floors Support System Child/Children Does the Patient Have Assistance After Yes: Daughter will stay w/pt Surgery to assist w/care at [place] Patient Discharge Plan Description Return Home Comment Pt advised overnight length of stay per surgeon Feels Safe in Current Environment Yes Been Physically Hurt or Threatened By a No Person in Current Environment Do you have thoughts of harming yourself None or others? Are you currently considering suicide? No Do you have a plan to hurt yourself or No Plan others? Do You Have Any Spiritual Beliefs That No May Affect Your HC Choices? Do You Have Any Cultural Practices That No May Affect Your HC Choices? Who Can We Speak to About Patient's Care Family, friends Identifying Code for Release of Patient Declines to issue Information Health Care Proxy/Next of Kin Bela (daughter) Health Care Proxy Emergency Contact Name Nilay (son) Emergency Contact Advance Directives? No Power of Hydro Generation Manager Yes Power of Hydro Generation Manager Name Adán (children) Power of Hydro Generation Manager Phone Number Bela: [phone], Nilay: [phone] PAC Instructions Durable medical equipment, Medications to take/avoid,No ETOH/petroleum product on skin DOS,NPO,Post-op transportation,Pre-surgical wash,Sturdy shoes/comfortable clothes,Do not bring valuables and remove jewelry
== END 2024-07-21 11:30 | disposition home or self-care (01) ==
LOC: OR 08:58 → AC 08:59
PROVIDERS: PCP Family Medicine; Referring Provider Orthopaedic Surgery Adult Reconstructive Orthopaedic Surgery; Visit Provider Orthopaedic Surgery Adult Reconstructive Orthopaedic Surgery
PROC: (CPT 27486; principal; 2024-07-20 10:45)
DX: T84.82XA Fibrosis due to internal orthopedic prosthetic devices, implants and grafts, initial encounter (principal); Z94.4 Liver transplant status
CPT/HCPCS: 27486; S2900; 36415; 73560; 85014; 85018; 87070; 87075; 87205; 97161; 97165; 97530; 97535; C1776; A9270; C1713; J0690; J1100; J1171; J2060; J2250; J2405; J2704; J3010; J7507